=== PATIENT | female | born 1955 | race Caucasian/White ===

== ENCOUNTER 2018-06-02 18:49 | Emergency (ER) | payer BC | END 2018-06-02 19:15 | disposition home or self-care (01) | LOC: BURERS 18:49 | DX: S01.81XA Laceration without foreign body of other part of head, initial encounter (principal); F32.9 Major depressive disorder, single episode, unspecified; K21.9 Gastro-esophageal reflux disease without esophagitis; I10 Essential (primary) hypertension; Z79.899 Other long term (current) drug therapy; W18.09XA Striking against other object with subsequent fall, initial encounter | CPT/HCPCS: 12011 ==

== ENCOUNTER 2018-06-09 12:20 | Emergency (ER) | payer BC | END 2018-06-09 12:40 | disposition home or self-care (01) | LOC: BURERS 12:20 | DX: S01.81XD Laceration without foreign body of other part of head, subsequent encounter (principal); I10 Essential (primary) hypertension; J44.9 Chronic obstructive pulmonary disease, unspecified; F17.200 Nicotine dependence, unspecified, uncomplicated; X58.XXXD Exposure to other specified factors, subsequent encounter ==

== ENCOUNTER 2019-07-17 12:12 | Emergency (ER) | payer BC ==
--- NOTE | 2019-07-17 12:49 | RAD ---
EXAM: 3 views of the right wrist HISTORY: Wrist pain after injury COMPARISON: None FINDINGS: 3 views of the right wrist shows no evidence of acute fracture or dislocation. No soft tiss ue swelling is seen. No degenerative changes are present. IMPRESSION: No evidence of acute osseous abnormality.
== END 2019-07-17 12:55 | disposition home or self-care (01) ==
LOC: BURERS 12:12
DX: S60.211A Contusion of right wrist, initial encounter (principal); K21.9 Gastro-esophageal reflux disease without esophagitis; I10 Essential (primary) hypertension; J44.9 Chronic obstructive pulmonary disease, unspecified; F17.200 Nicotine dependence, unspecified, uncomplicated; Z79.899 Other long term (current) drug therapy; W18.30XA Fall on same level, unspecified, initial encounter